=== PATIENT | female | born 1995 | race Caucasian/White ===

== ENCOUNTER 2018-02-16 21:09 | Observation (INO) | payer MEDICAID, SELFPAY ==
--- NOTE | 2018-02-16 22:44 | ULT ---
TRANSABDOMIKNAL AND TRANSVAGINAL PELVIC ULTRASOUND WITH DOPPLER: Date: 02/16/18 PROVIDED CLINICAL HISTORY: Vaginal bleeding with . FINDINGS: Uterus measures about 8.0 x 3.3 x 4.6 cm, and demonstrates no evidence for an intrauterine gestationa l sac. Endometrial thickness is about 1.0 cm. There is a large, complex right adnexal mass measuring about 7.7 x 5.3 x 5.2 cm. Adjacent to this is a 2.7 cm cystic structure. This appears separate from a hypoechoic structure demonstrating sonographi c features typical for an ovary that measures about 2.7 x 3.1 x 3.4 cm. Left ovary measures about 3.1 x 2.2 x 2.6 cm and appears sonographically normal. Color Doppler and spectral analysis of the ovarian waveforms reveals flow bilaterally. There is free pelvic fluid noted. IMPRESSION: Complex right adnexal mass suspicious for ectopic in the setting of a positive beta HCG. Findings communicated to Dr. Cope in the emergency department at 1036 hours on 02/16/18. CODE CR. POS: JORGE
[2018-02-16 22:48] LABS: #Eosinphils 0.1 thou/uL (0.0-0.7); #Lymphocytes 1.7 thou/uL (1.20-3.40); #Monocytes 0.7 thou/uL (0.11-0.59); #Neutrophils 4.9 thou/uL (1.40-6.50); %Eosinophils 1.8 % (0.0-10.0); %Lymphocytes 22.9 % (28.0-48.0); %Monocytes 8.8 % (0.0-4.0); %Neutrophils 66.4 % (31.0-61.0); Hemoglobin 7.7 g/dL (12.0-16.0); Mean Corpuscular HGB CONC 35.4 g/dL (32.0-36.0); Mean Corpuscular Hemoglobin 30.4 pg (25.0-35.0); Mean Platelet Volume 9.6 fL (7.4-10.4); Platelet Count 188 thou/uL (130-400); RBC Distribution Width 12.2 % (11.5-14.5); Red Blood Cell (RBC) Count 2.52 mill/uL (4.00-5.20); White Blood Cell (WBC) Count 7.3 thou/uL (4.8-10.8)
[2018-02-16 23:15] LABS: ALT (SGPT) 7 U/L (8-55); AST (SGOT) 13 U/L (5-34); Albumin 4.2 g/dL (3.5-5.0); Alkaline Phosphatase 54 U/L (40-150); Anion Gap 10 mmol/L (10-20); BUN (Urea Nitrogen) 10 mg/dL (7.0-18.7); Bilirubin, Total 2.4 mg/dL (0.2-1.2); Calc. Creatinine Clearance 0 mL/min (70-130); Calcium 9.4 mg/dL (7.8-10.44); Carbon Dioxide 25 mmol/L (22-29); Chloride 105 mmol/L (98-107); Estimated GFR-MDRD Greater than 90; Globulin 2.7 g/dL (2.4-3.5); Glucose 91 mg/dL (70-105); INR-International Normal Ratio 1.1; PTT 29.9 SEC (22.9-36.1); Potassium 3.3 mmol/L (3.5-5.1); Protein, Total 6.9 g/dL (6.0-8.3); Sodium 137 mmol/L (136-145)
[2018-02-16] MEDS ORDERED: HYDROmorphone 0.5 MG/0.5 ML SYRINGE ONE (23:33)
[2018-02-16] MEDS ORDERED: Fentanyl 100 MCG/2 ML VIAL ONE ×2 (23:33)
[2018-02-16] MEDS ORDERED: Midazolam HCl 2 mg/2 ml Vial ONE (23:33)
[2018-02-16] MEDS ORDERED: Bupivacaine HCl 0.5%/Epinephrine 1:200,000/PF 30 ml Vial ONE (23:37)
[2018-02-17] MEDS ORDERED: Ondansetron HCl/PF 4 MG/2 ML Vial IVP PRN ×2 (00:32→02:40)
[2018-02-17] MEDS ORDERED: Promethazine HCl 25 MG/ML VIAL SLOW IVP PRN (00:32)
[2018-02-17] MEDS ORDERED: Meperidine HCl/PF 25 MG/ML VIAL SLOW IVP PRN (00:32)
[2018-02-17] MEDS ORDERED: Promethazine HCl 25 MG/ML VIAL IM PRN ×2 (00:32→02:40)
[2018-02-17] MEDS ORDERED: diphenhydrAMINE 25 MG CAP PO PRN (02:40)
[2018-02-17] MEDS ORDERED: Acetaminophen/Codeine 30-300mg Tablet PO PRN ×2 (02:40)
[2018-02-17] MEDS ORDERED: Morphine 5 MG/ML SYRINGE SLOW IVP PRN ×2 (03:01→03:03)
[2018-02-17] MEDS: Lactated Ringer's 1,000 ML IV SCH ×2 (05:24→06:14)
[2018-02-17 05:26] LABS: Hemoglobin 6.7 g/dL (12.0-16.0); Mean Corpuscular HGB CONC 34.5 g/dL (32.0-36.0); Mean Corpuscular Hemoglobin 29.4 pg (25.0-35.0); Mean Corpuscular Volume 85.4 fl (77.0-87.0); Mean Platelet Volume 9.1 fL (7.4-10.4); Platelet Count 158 thou/uL (130-400); RBC Distribution Width 12.2 % (11.5-14.5); Red Blood Cell (RBC) Count 2.27 mill/uL (4.00-5.20); White Blood Cell (WBC) Count 10.2 thou/uL (4.8-10.8)
[2018-02-17] MEDS ORDERED: Ketorolac Tromethamine 30 MG/ML VIAL IVP SCH (06:00)
--- NOTE | 2018-02-17 06:08 | OP ---
DATE OF OPERATION: 02/17/2018 PREOPERATIVE DIAGNOSES: Severe anemia with suspected ruptured right distal ectopic . POSTOPERATIVE DIAGNOSES: Severe anemia secondary to acute blood loss with ruptured right distal ecto pic at approximately 2550-1530 mL hemoperitoneum. PROCEDURE: Laparoscopic right salpingectomy for ectopic. SPECIMENS REMOVED: Right tube and ectopic. SURGEON: Dev Harrison M.D. ANESTHESIA: Souleymane Ly M.D. ANTIBIOTICS: Two-grams of Ancef preincision. DVT PROPHYLAXIS: SCDs. ESTIMATED BLOOD LOSS: 25 mL. INTRAOPERATIVE FINDINGS: 1. Approximately 5408-3256 mL hemoperitoneum with blood filling the pelvis, paracolic gutters, and e xtending all the way up to the diaphragm with the patient level position. 2. Distal right fallopian tube ectopic ruptured with large clot and possible products of conception adherent to the distal end of the ruptured fallopian tube. 3. Normal appearing right ovary. 4. Peritubal adhesions and clubbing of the left fallopian tube. 5. Normal appearing uterus. 6. Hemostasis, clear urine, counts correct at the end of the procedure. DISPOSITION: To recovery room in good condition. DESCRIPTION OF OPERATIVE PROCEDURE: After obtaining proper informed consent, the patient was taken t o the operating room, where general endotracheal anesthesia achieved without difficulty. She was pre pped and draped in dorsal lithotomy position in [facility]. Almeida catheter placed in the bladder . Side-hand speculum was placed in vagina, cervix identified, grasped with tooth tenaculum at 12 o'c lock. Hulka manipulator placed inside. Tenaculum and speculum were removed. Education Program Manager changed his g loves and turned his attention to the abdominal portion of procedure. A 5 mL of Marcaine injected at the base of umbilicus and a Veress needle placed in the abdominal cavity. Insufflation carried out with carbon dioxide to a max pressure of 15. A 5-mm Optiview trocar was introduced through the umbil icus confirming entry into the peritoneal cavity. Findings as noted the operative findings were note d. Left lateral trocar lateral to epigastric vessels at the level of the umbilicus placed under dire ct visualization and suction irrigation was carried out to remove as much of the hemoperitoneum as co uld be removed. A 10-mm suprapubic trocar was placed 3 cm above the symphysis pubis in the midline w ith a drained bladder under direct visualization. Fallopian tube was mobilized and using the LigaSur e at the distal end, it was coagulated and transected at its mesosalpinx taken all the way up to its insertion into the uterus on the patient's right. The laparoscopic retrieval bag was used x2 to james ve the ectopic in the fallopian tube as well as the clot that was felt to have some possible products of conception at the distal end of the fallopian tube. Once this was done, suction irrigation was c arried out which revealed good hemostasis throughout. Good photodocumentation was obtained and was h anded to the patient and her family after the procedure. Trocar closure set was used to reapproximat e the 10-mm trocar using an 0 Vicryl suture. Abdomen was desufflated of carbon dioxide and two troca rs were removed. The skin reapproximated x3 using 4-0 Monocryl and Dermabond. Hulka manipulator rem pascual. Almeida catheter removed. The patient awakened and extubated, and taken to recovery room in goo d condition. Again, photodocumentation was given to the patient's family. We will follow up with th e patient at [facility] [place] in 4 weeks and we will discuss prognosis of her peritubal a dhesions and clubbing on the left for future pregnancies as well as her increased risk of recurrent e ctopic .
[2018-02-17] MEDS ORDERED: Ondansetron HCl/PF 4 MG/2 ML Vial ONE (06:47)
[2018-02-17] MEDS ORDERED: Lidocaine 1% PF 5 ML VIAL ONE (06:47)
[2018-02-17] MEDS ORDERED: PROPOFOL 200 MG/20 ML VIAL ONE (06:47)
[2018-02-17] MEDS ORDERED: Glycopyrrolate 0.2 MG/ML 5 ML SYRINGE ONE (06:47)
[2018-02-17] MEDS ORDERED: Succinylcholine Chloride 20 MG/ML 10 ml SYRINGE FS ONE (06:47)
[2018-02-17] MEDS ORDERED: Sodium Chloride 0.9% 10 ML ONE (06:48)
--- NOTE | 2018-02-17 07:03 | DIS ---
SUMMARY OF HOSPITAL COURSE: The patient underwent a laparoscopic right salpingectomy and evacuation of intra-abdominal blood for a ruptured ectopic . The patient's hematocrit remains stable w ith repeat at 19.4%. The patient has a negative pulse tilt and is tolerating well. Exam reveals the abdomen is soft and nontender, without rebound or guarding. Incisions are well healing. IMPRESSION: Doing well status post surgical treatment of ruptured right ectopic. PLAN: Discharge home. Tylenol #3, iron sulfate. Follow up at [facility] [place] in [address] [place] [address].
--- NOTE | 2018-02-17 07:33 | HP ---
TIME OF SERVICE: 2230 hours. REASON FOR ADMISSION: Right ectopic . HISTORY OF PRESENT ILLNESS: Ms. Dueñas is a 22-year-old primigravida approximately 10 weeks gestatio n by LMP, who has had serial beta hCGs done by at [facility] in [place]. The patient had o ne done several days ago that was 21,000, repeat today was 24,000. The patient was told to present [facility] for an ultrasound. Ultrasound reveals a complex right adnexal mass with an e mpty uterus at the ultrasound diagnosis of right ectopic . The patient is noted to have a h ematocrit of 21%, but is hemodynamically stable. OB AND GAME AND FISH PROTECTOR HISTORY: Primigravida. Denies history of STDs or dysplasia. PAST MEDICAL HISTORY: None. PAST SURGICAL HISTORY: None. ALLERGIES: Denies. MEDICATIONS: None. SOCIAL HISTORY: Denies tobacco, alcohol, or IV drug use. FAMILY HISTORY: Noncontributory. REVIEW OF SYSTEMS: Noncontributory. PHYSICAL EXAMINATION: GENERAL: White female, in no acute distress. VITAL SIGNS: Blood pressure 138/82, pulse 105, respirations 18, temperature 98.6. HEENT: Within normal limits. LUNGS: Clear to auscultation bilaterally. HEART: Regular rhythm. ABDOMEN: Soft. She has some mild discomfort to deep palpation in the right lower quadrant, but has no fluid wave, no rebound, no guarding. Bimanual exam was deferred. EXTREMITIES: Without clubbing, cyanosis or edema. LABORATORY DATA: Type and Rh pending. Hematocrit is noted. RADIOLOGY: Ultrasound as noted in the HPI. IMPRESSION: A 7 cm complex right adnexal mass consistent with ectopic . PLAN: Discussed with the patient her options. Considering her anemia and the size, she is not a can didate for medical treatment. We will proceed with laparoscopic right salpingectomy this evening wit h appropriate antibiotic and DVT prophylaxis.
[2018-02-17 08:54] VITALS: BP 115/55; TEMP 98.6
--- NOTE | 2018-02-21 22:15 | EKG ---
Test Reason : Blood Pressure : / mmHG Vent. Rate : 104 BPM Atrial Rate : 104 BPM P-R Int : 130 ms QRS Dur : 082 ms QT Int : 318 ms P-R-T Axes : 045 036 031 degrees QTc Int : 418 ms Sinus tachycardia Otherwise normal ECG Confirmed by ANGÉLICA VASQUEZ D.O. ([id number]), index editor ROSETTA DÍAZ ([id number]) on 02/21/2018 10:14:27 PM Referred By: Confirmed By:ANGÉLICA VASQUEZ D.O.
== END 2018-02-17 09:30 | disposition home or self-care (01) ==
LOC: ERS 21:09 → 3SW 02-17 00:09 → SDC/OP 02-17 00:50 → 3SW 02-17 02:02
PROVIDERS: ADMIT Obstetrics & Gynecology; ATTEND Obstetrics & Gynecology
PROC: 10T24ZZ Resection of Products of Conception, Ectopic, Percutaneous Endoscopic Approach (ICD-10-PCS; principal; 2018-02-17)
PROC: 0UT54ZZ Resection of Right Fallopian Tube, Percutaneous Endoscopic Approach (ICD-10-PCS; 2018-02-17)
DX: O00.101 Right tubal pregnancy without intrauterine pregnancy (principal); D62 Acute posthemorrhagic anemia
CPT/HCPCS: 36415; 76856; 80053; 84702; 85025; 85027; 85610; 85730; 86850; 86900; 86901; 88305; 93005; 96361; 96374; A4216; G0378; J0670; J1170; J1885; J2001; J2250; J2270; J2405; J2704; J3010